=== PATIENT | female | born 1950 | race Caucasian/White ===

== ENCOUNTER → 2016-08-20 | Outpatient (CLI) | payer BC ==
[~2016-08-20] MED LIST: EVISTA; EVISTA 60MG60 MG/TAB; EVISTA 60MG60 MG/TAB PO; FEMARA PO; NORCO 325 MG-7.1 TAB PO; RECLAST5 MG/100 M IV; ZETIA 10MG TAB10 MG PO
== END ==
LOC: COL.RAD 12:15
DX: C50.912 Malignant neoplasm of unspecified site of left female breast (principal)
CPT/HCPCS: A9541

== ENCOUNTER 2016-08-21 06:51 | Day surgery (SDC) | payer BC ==
[~2016-08-21] VITALS: Ht 165.1 cm; Wt 72.7 kg
[2016-08-21] VITALS (13 sets, daily range): BP systolic 94–116; BP diastolic 52–77; PULSE 71–104; TEMP 97.2–98.9
[~2016-08-21 06:51] MED LIST changes: -FEMARA PO; -NORCO 325 MG-7.1 TAB PO; -ZETIA 10MG TAB10 MG PO
[2016-08-21] MEDS ORDERED: ZETIA 10MG TAB10 MG PO (08:03)
[2016-08-21] MEDS ORDERED: FEMARA PO (08:04)
[2016-08-22 02:32] VITALS: BP 115/60; PULSE 71; TEMP 98.5
[2016-08-22 04:51] VITALS: BP 105/60; PULSE 73; TEMP 97.6
[2016-08-22] MEDS ORDERED: NORCO 325 MG-7.1 TAB PO (09:04)
[2016-08-22 09:32] VITALS: BP 112/59; PULSE 73; TEMP 97.2
== END 2016-08-22 10:53 | disposition home or self-care (01) ==
LOC: SDCO 06:51 → SURG 12:51 → SDCO 08-22 10:53
DX: D05.12 Intraductal carcinoma in situ of left breast (principal); Z85.3 Personal history of malignant neoplasm of breast; D86.1 Sarcoidosis of lymph nodes
CPT/HCPCS: OP; J0690; J2250; J2270; J2405; J2704; J3010; J7120; Q9968

== ENCOUNTER → 2018-01-05 | Outpatient (CLI) | payer MEDICARE, OTHER ==
[~2018-01-05] MED LIST changes: +FEMARA PO; +NORCO 325 MG-7.1 TAB PO; +ZETIA 10MG TAB10 MG PO
== END ==
LOC: MC.RAD 08:59
DX: Z12.31 Encounter for screening mammogram for malignant neoplasm of breast (principal); Z92.3 Personal history of irradiation; Z90.12 Acquired absence of left breast and nipple; Z85.3 Personal history of malignant neoplasm of breast; Z98.890 Other specified postprocedural states

== ENCOUNTER → 2019-02-07 | Outpatient (CLI) | payer MEDICARE, OTHER | LOC: MC.RAD 10:00 | DX: Z12.31 Encounter for screening mammogram for malignant neoplasm of breast (principal); Z85.3 Personal history of malignant neoplasm of breast; Z90.12 Acquired absence of left breast and nipple; Z98.890 Other specified postprocedural states; Z92.3 Personal history of irradiation ==

== ENCOUNTER 2019-05-17 16:04 | Observation (INO) | payer MEDICARE, OTHER ==
[~2019-05-17] VITALS: Ht 165.1 cm; Wt 68.5 kg
[2019-05-17] MEDS ORDERED: FOLIC ACID 11 MG/TA1 PO (17:15)
[2019-05-17] MEDS ORDERED: METHOTREXA2.5 MG/TAB PO (17:16)
[2019-05-17 17:21] VITALS: BP 135/79; PULSE 92; TEMP 98.9
[2019-05-17 20:00] VITALS: BP 147/67; PULSE 89; TEMP 98.3
--- NOTE | 2019-05-17 22:19 | NUR ---
Patient requests assistance as she feels like she is going to vomit. Patient vomits 350mL of blue emesis into container plus an unknown amount that did not go into the container. Patient denies need to have bowel movement. IV fluids paused at this time. Zofran administered and ordered. Patient ambulates up to restroom, has unmeasured void. Provided towels to patient to clean up, gown and bed linens changes as well. Patient returns back to bed. Reconnected fluids. Patient denies further needs at this time.
--- NOTE | 2019-05-17 22:55 | NUR ---
Shift assessment completed. Patient having minimal discomfort on right side of abdomen. Denies N/V. Daughter and sister in room. #20 gauge IV started in right hand times one stick by this nurse. Patient tolerates procedure without difficulty. Reinforced site with tegaderm and tape. Miralax bowel prep provided to the patient, patient instructed on how to take. Patient denies further needs at this time.
--- NOTE | 2019-05-17 23:34 | NUR ---
Lying in bed with eyes open. Patient says that her nausea has subsided but she does not have the desire to drink more of the Miralax bowel prep at this time. Explained that we will give it a little bit longer and see if things get better and she is able to tolerate drinking the remainder of the bowel prep. Denies need to have bowel movement at this time. Patient denies further needs.
[2019-05-18] VITALS (13 sets, daily range): BP systolic 104–133; BP diastolic 59–95; PULSE 68–82; TEMP 98–98.9
--- NOTE | 2019-05-18 04:01 | NUR ---
Up to bathroom, has bowel movment. Returns to bed. Unable to finish 700mL of Miralax bowel prep. Patient has tried to drink but has not been able to tolerate the prep. Explained to the patient that this may affect being able to perform the colonoscopy if she is not able to clear her bowels and patient explains that she understands. Patient requests something for pain due to headache that she is getting. Administered pain medication as ordered. Lights dimmed for patient. Patient declines further needs at this time.
--- NOTE | 2019-05-18 04:53 | NUR ---
Lying in bed with eyes closed. Eyes open when name called out. Rates pain 2/10 in head. Denies any other complaints at this time.
--- NOTE | 2019-05-18 06:17 | NUR ---
Lying in bed with eyes open at this time. Reviewed consent with the patient for colonoscopy procedure today. Patient denies any further questions or concerns related to procedure. Attempted to take bowel prep through the night but vomited and then was not able to tolerate finishing the bowel prep. Had headache through evening which pain was alleviated with ordered pain medication. Patient denies further needs at this time.
[2019-05-18 06:19] LABS: BASO # 0.1 (0.0-0.2); BASO % 0.6 % (0.0-2.0); EOS # 0.1 (0.0-0.7); EOS % 1.5 % (0-4.0); GRAN # 7.5 (1.4-6.5); GRAN % 77.6 % (42.2-75.2); HEMATOCRIT 33.3 % (37.0-47.0); LYMPH # 0.8 (1.2-3.4); LYMPH % 8.7 % (20.0-51.0); MEAN CELL VOLUME 92 fl (80.0-100.0); MEAN CORPUSCULAR HEMOGLOBIN 30 pg (27.0-31.0); MEAN CORPUSCULAR HGB CONC 33 g/dl (33.0-37.0); MEAN PLATELET VOLUME 9.9 fl (7.4-10.4); MONO # 1.1 (0.1-0.6); MONO % 11.2 % (1.7-9.3); PLATELET COUNT 404 K/mm3 (130-400); RED BLOOD COUNT 3.64 M/mm3 (4.10-5.30); REDCELL DISTRIBUTION WIDTH-CV 12.5 % (11.5-14.5)
[2019-05-18 06:28] LABS: ALBUMIN 3.6 gm/dL (3.5-5.0); BILIRUBIN,TOTAL 0.7 mg/dL (0.0-1.0); CALCIUM 8.8 mg/dL (8.4-10.2); CREATININE, serum 0.57 (0.52-1.25); POTASSIUM 3.6 mmol/L (3.4-5.0); TOTAL PROTEIN 6.8 gm/dL (6.4-8.2)
--- NOTE | 2019-05-18 06:56 | NUR ---
Shift report provided to Emeterio Aragon.
--- NOTE | 2019-05-18 09:30 | NUR ---
Patient is going down for her colonoscopy. She did not have more bowel movements. Her stools were soft, not liquid. Patient has been having nausea during the night and this shift. She denies pain at this time. No other changes at this time. Call light within reach.
--- NOTE | 2019-05-18 10:18 | NUR ---
Initial visit; Patient thanked Clinical Appeals Reviewer for stopping, her Medical Record Transcriber was present so Clinical Appeals Reviewer excused herself knowing patient was in good hands.
--- NOTE | 2019-05-18 10:18 | NUR ---
SW met with the patient to discuss a discharge plan. The patient lives alone in [place]. The patient does not use DME and reports indepenence with ADLs. The patient's PCP is Dr. Tommy Ac and patient receives medications from [facility] with no difficulties. The patient does not have advanced directives in the EMR and was not interested in a DPOA-HC form. The patient plans to return home with her mom, Judy providing transportation. There are no additional needs at this time.
--- NOTE | 2019-05-18 11:00 | NUR ---
Patient is back from her colonoscopy and continues to have nausea. She stated he medications are not helping with her nausea. Family at bedside. No other changes at this time. Call light judah hubbard.
[2019-05-18] MEDS ORDERED: CIPRO 500MG TA500 MG PO (11:55)
[2019-05-18] MEDS ORDERED: FLAGYL500 MG PO (11:55)
[2019-05-18] MEDS ORDERED: NORCO 325 MG-7.1 TAB PO (11:55)
[2019-05-18] MEDS ORDERED: ZOFRAN ODT4 MG PO (11:59)
--- NOTE | 2019-05-18 18:30 | NUR ---
At about 1530 the patient started to feel better and her nausea was better. She has been taking in few clear liquids. She is starting slow. She denies pain at this time. She had some green emesis earlier in the shift but stated it did not last very long. No other changes at this time. Call light within reach.
[2019-05-19 00:23] VITALS: BP 117/62; PULSE 73; TEMP 98.8
[2019-05-19 04:00] VITALS: BP 124/69; PULSE 75; TEMP 98.2
[2019-05-19 07:09] LABS: BASO # 0.1 (0.0-0.2); BASO % 0.5 % (0.0-2.0); EOS # 0.2 (0.0-0.7); EOS % 1.9 % (0-4.0); GRAN # 7.4 (1.4-6.5); GRAN % 78.4 % (42.2-75.2); HEMOGLOBIN 10.9 g/dl (12.5-16.0); LYMPH # 0.6 (1.2-3.4); LYMPH % 5.9 % (20.0-51.0); MEAN CELL VOLUME 93 fl (80.0-100.0); MEAN CORPUSCULAR HEMOGLOBIN 30 pg (27.0-31.0); MEAN CORPUSCULAR HGB CONC 32 g/dl (33.0-37.0); MEAN PLATELET VOLUME 10.2 fl (7.4-10.4); MONO # 1.2 (0.1-0.6); MONO % 12.8 % (1.7-9.3); PLATELET COUNT 394 K/mm3 (130-400); RED BLOOD COUNT 3.62 M/mm3 (4.10-5.30); REDCELL DISTRIBUTION WIDTH-CV 12.4 % (11.5-14.5)
[2019-05-19 07:12] LABS: HEMATOCRIT 33.6 % (37.0-47.0)
[2019-05-19 07:15] LABS: ALBUMIN 3.4 gm/dL (3.5-5.0); BILIRUBIN,TOTAL 0.6 mg/dL (0.0-1.0); CALCIUM 8.5 mg/dL (8.4-10.2); CREATININE, serum 0.53 (0.52-1.25); POTASSIUM 3.5 mmol/L (3.4-5.0); TOTAL PROTEIN 6.4 gm/dL (6.4-8.2)
[2019-05-19 08:17] VITALS: BP 127/71; PULSE 74; TEMP 98.4
--- NOTE | 2019-05-19 10:06 | NUR ---
machine lay out worker met with patient to discuss discharge planning. Patient states she lives with spouse and will return home upon discharge, possibly today. Patient states she is independent with activities and denies concerns with discharge. Patient's primary care provider is Dr Snyder and patient denies concerns with obtaining her prescriptions. Patient states she does not have advance directives and is not interested in obtaining them at this time. Worker collaborated with patient's nurse regarding above information.
--- NOTE | 2019-05-19 11:00 | NUR ---
Patient is discharging home. Discharge instructions discussed with patient. No questions verbalized. INT discontinued. Explained that she has prescriptions to get filled. Explained she has antibiotics that she needs to take today. She also has a script for norco but she stated she did not want it. Patient is packing up her belongings. Copies of discharge instructions sent with patient. Patient is waiting for her ride.
[2019-05-20] MEDS ORDERED: NORCO 325 MG-51 TAB PO (08:17)
== END 2019-05-19 11:30 | disposition home or self-care (01) ==
LOC: SURG 16:04
PROVIDERS: ADMIT Surgery
DX: C18.0 Malignant neoplasm of cecum (principal); D12.0 Benign neoplasm of cecum; Z85.3 Personal history of malignant neoplasm of breast; D86.9 Sarcoidosis, unspecified; E78.5 Hyperlipidemia, unspecified; Z90.12 Acquired absence of left breast and nipple; H20.10 Chronic iridocyclitis, unspecified eye; E21.1 Secondary hyperparathyroidism, not elsewhere classified; G62.9 Polyneuropathy, unspecified; M81.0 Age-related osteoporosis without current pathological fracture; Z92.3 Personal history of irradiation; Z90.721 Acquired absence of ovaries, unilateral; Z90.710 Acquired absence of both cervix and uterus; Z79.899 Other long term (current) drug therapy
CPT/HCPCS: G0378; G0379; J0744; J2250; J2405; J3010; J7120

== ENCOUNTER 2019-05-20 05:59 | Emergency (ER) | payer MEDICARE, OTHER ==
[~2019-05-20] VITALS: Ht 165.1 cm; Wt 67.3 kg
[~2019-05-20 05:59] MED LIST changes: +CIPRO 500MG TA500 MG PO; +FLAGYL500 MG PO; +FOLIC ACID 11 MG/TA1 PO; +METHOTREXA2.5 MG/TAB PO; +ZOFRAN ODT4 MG PO
[2019-05-20 06:06] VITALS: TEMP 98.6
[2019-05-20 06:50] LABS: BASO # 0.1 (0.0-0.2); BASO % 1.1 % (0.0-2.0); EOS # 0.2 (0.0-0.7); EOS % 2.5 % (0-4.0); GRAN # 6.6 (1.4-6.5); GRAN % 78.2 % (42.2-75.2); LYMPH # 0.6 (1.2-3.4); LYMPH % 6.5 % (20.0-51.0); MEAN CELL VOLUME 92 fl (80.0-100.0); MEAN CORPUSCULAR HEMOGLOBIN 30 pg (27.0-31.0); MEAN CORPUSCULAR HGB CONC 32 g/dl (33.0-37.0); MEAN PLATELET VOLUME 10.1 fl (7.4-10.4); MONO % 11.5 % (1.7-9.3); PLATELET COUNT 405 K/mm3 (130-400); RED BLOOD COUNT 3.71 M/mm3 (4.10-5.30); REDCELL DISTRIBUTION WIDTH-CV 12.6 % (11.5-14.5)
[2019-05-20 06:51] LABS: HEMATOCRIT 34.1 % (37.0-47.0)
[2019-05-20 07:00] LABS: ALBUMIN 3.6 gm/dL (3.5-5.0); BILIRUBIN,TOTAL 0.5 mg/dL (0.0-1.0); CALCIUM 8.6 mg/dL (8.4-10.2); CREATININE, serum 0.58 (0.52-1.25); POTASSIUM 3.4 mmol/L (3.4-5.0); TOTAL PROTEIN 6.7 gm/dL (6.4-8.2)
[2019-05-20 08:16] LABS: COLLECTION METHOD CLEAN CATCH
[2019-05-20] MEDS ORDERED: NORCO 325 MG-51 TAB PO (08:17)
[2019-05-20 08:26] LABS: AMORPHOUS CRYSTAL Present /uL; MUCOUS Present /lpf; PH 7 (5-8); SQUAMOUS EPITHELIAL 0-2 /hpf; URINE APPEARANCE Hazy; URINE BACTERIA Rare /hpf; URINE BILIRUBIN Negative (NEGATIVE); URINE BLOOD Negative (NEGATIVE); URINE COLOR Yellow; URINE GLUCOSE Negative (NEGATIVE); URINE KETONE Trace (NEGATIVE); URINE LEUKOCYTE ESTERASE Negative (NEGATIVE); URINE NITRATE Negative (NEGATIVE); URINE PROTEIN(semi-quant) Negative (NEGATIVE); URINE RBC 0-2 /hpf; URINE UROBILINOGEN >=4.0 mg/dL (NEGATIVE)
[2019-05-20 09:35] VITALS: BP 132/92; PULSE 69
== END 2019-05-20 09:40 | disposition home or self-care (01) ==
LOC: COL.ER 05:59
PROVIDERS: Emergency Medicine
DX: K63.89 Other specified diseases of intestine (principal); R10.31 Right lower quadrant pain; Z85.3 Personal history of malignant neoplasm of breast
CPT/HCPCS: J2543; J3010; J7030

== ENCOUNTER 2019-05-24 08:17 | Inpatient (IN) | payer MEDICARE, OTHER ==
[~2019-05-24 08:17] MED LIST changes: +NORCO 325 MG-51 TAB PO
[2019-06-01] VITALS (8 sets, daily range): BP systolic 99–107; BP diastolic 50–67; PULSE 77–84; TEMP 97.6–98.7
--- NOTE | 2019-06-01 08:18 | NUR ---
0818- Patient brought back to [facility] [address] ambulated without difficulty. Consent and history reviewed, all questions answered. Patient placed on mointors, vital signs stable. IV placed in right wrist, lab at bedside to obtain. Patient complaining of nausea. CHIEF ADMINISTRATIVE OFFICER made aware, orders for Zofran obtained. Patient states shes had minimal improvement. Daughter and at bedside. Heart sounds regular, lung sounds clear, bowel sounds acitve. Call ly within reach, warm blanket provided, all safety maintained. Will continue to monitor.
[2019-06-01 08:57] LABS: BASO # 0.1 (0.0-0.2); BASO % 1.4 % (0.0-2.0); EOS # 0.3 (0.0-0.7); EOS % 3.7 % (0-4.0); GRAN % 74.3 % (42.2-75.2); LYMPH # 0.7 (1.2-3.4); LYMPH % 8.3 % (20.0-51.0); MEAN CELL VOLUME 89 fl (80.0-100.0); MEAN CORPUSCULAR HEMOGLOBIN 29 pg (27.0-31.0); MEAN CORPUSCULAR HGB CONC 33 g/dl (33.0-37.0); MEAN PLATELET VOLUME 9.9 fl (7.4-10.4); MONO % 11.9 % (1.7-9.3); PLATELET COUNT 441 K/mm3 (130-400); REDCELL DISTRIBUTION WIDTH-CV 13.1 % (11.5-14.5)
[2019-06-01 08:58] LABS: HEMATOCRIT 36.6 % (37.0-47.0)
[2019-06-01 09:09] LABS: ALANINE AMINOTRANSFERASE < 6 U/L (9-52); ALKALINE PHOSPHATASE 118 U/L (50-136); ANION GAP 10 mmol/L (7-16); AST,SGOT 29 U/L (15-37); BILIRUBIN,TOTAL 0.4 mg/dL (0.0-1.0); BLOOD UREA NITROGEN 6 mg/dL (7-17); CALCIUM 9.4 mg/dL (8.4-10.2); CARBON DIOXIDE 29 mmol/L (22-30); CHLORIDE 100 mmol/L (98-107); CREATININE, serum 0.54 (0.52-1.25); GLUCOSE 107 mg/dL (74-106); SODIUM 139 mmol/L (137-145); TOTAL PROTEIN 7.4 gm/dL (6.4-8.2)
--- NOTE | 2019-06-01 16:05 | NUR ---
PATIENT ADMITED INTO ROOM 347 POST OP ROBOTIC RIGHT HEMICOLECTOMY AND CYSTO. ABDOMINAL LAP SITES X3 AND LOWER ABDOMINAL TRANSVERSE INCISION ARE CD&I WITH GLUED CLOSURE. HYPO BOWL SOUNDS NOTED. NO C/O N/V. LIQUIDS AT BEDSIDE. POST OP B/P LOW IN 90'S TO LOW 100'S SYSTOLIC. ALL OTHER VSS. PATIENT IS PALE, WEAK & TIRED. RESTING UP IN BED WITH FAMILY AT BEDSIDE. HOB LOWERED FOR PRESSURES. IV FLUIDS INFUSING VIA PUMP INTO RIGHT WRIST IV. RIGHT PORT PLACED IN OR TODAY. DESIR TO DEPENDENT DRAINAGE WITH SMALL AMOUNTS OF ROSEMARIE COLORED URINE NOTED. HEAD TO TOE ASSESSMENT COMPLETE. FAMILY AT BEDSIDE. CALL LIGHT IN REACH.
--- NOTE | 2019-06-01 22:15 | NUR ---
Pt doing ok. Resting in bed. Had right robotic alvaro. 3 lap sites with 1 transverse with glue. All sites CD&I. Patient states she is having minimal pain right now, does feel fatigued. BP have stabilized. Has not had BM or passed gas this shift. Has IV to right wrist and right sided portacath. PT does not have any complaints at this time. Call light within reach, will continue to monitor
[2019-06-02 00:41] VITALS: BP 121/66; PULSE 68; TEMP 98.3
[2019-06-02 04:00] VITALS: BP 120/86; PULSE 72; TEMP 98.3
[2019-06-02 07:07] LABS: BASO % 0.2 % (0.0-2.0); GRAN # 9.8 (1.4-6.5); GRAN % 86.4 % (42.2-75.2); HEMOGLOBIN 10.7 g/dl (12.5-16.0); LYMPH # 0.6 (1.2-3.4); MEAN CELL VOLUME 91 fl (80.0-100.0); MEAN CORPUSCULAR HEMOGLOBIN 29 pg (27.0-31.0); MEAN CORPUSCULAR HGB CONC 32 g/dl (33.0-37.0); MEAN PLATELET VOLUME 10.5 fl (7.4-10.4); MONO # 0.9 (0.1-0.6); MONO % 7.8 % (1.7-9.3); PLATELET COUNT 397 K/mm3 (130-400); RED BLOOD COUNT 3.68 M/mm3 (4.10-5.30); REDCELL DISTRIBUTION WIDTH-CV 13.3 % (11.5-14.5)
[2019-06-02 07:17] LABS: HEMATOCRIT 33.4 % (37.0-47.0)
[2019-06-02 07:36] LABS: CALCIUM 8.8 mg/dL (8.4-10.2); CREATININE, serum 0.67 (0.52-1.25); MAGNESIUM 1.8 mg/dL (1.6-2.3); PHOSPHOROUS 3.7 mg/dL (2.5-4.5); POTASSIUM 3.5 mmol/L (3.4-5.0)
[2019-06-02 09:06] VITALS: BP 123/65; PULSE 72; TEMP 98.6
[2019-06-02 12:47] VITALS: BP 115/73; PULSE 80; TEMP 98.5
--- NOTE | 2019-06-02 13:41 | NUR ---
Abd lap sites x3 Clean dry and intact. Abd incision clean dry and intact. Patient resting in bed with visitor in room. Call light within reach.
--- NOTE | 2019-06-02 15:31 | NUR ---
Book Jacket Cover Machine Operator met with the patient to discuss discharge planning. Patient lives outside of [place] with her , Stef (ph#[phone]). Patient reports independence with ADLS and has no DME. Patient sees Dr. Snyder for primary care and obtains prescriptions from [facility] pharmacy with no issue. Patient does not have Advance Directives but was interested in taking home the DPOA-HC form. SW provided. Patient does not have any concerns at this time about returning home upon discharge.
[2019-06-02 16:34] VITALS: BP 127/70; PULSE 71; TEMP 99.1
--- NOTE | 2019-06-02 19:40 | NUR ---
Pt doing well. Resting in bed. Alert and oriented with VSS. Ate soup and ice cream for dinner. States she had a large liquid BM after dinner. Does not complain of pain at this time. Still has fluids running. L arm restriction due to mastectomy. Patient denies other needs at this time. Call light within reach, will continue to monitor
[2019-06-02 20:00] VITALS: BP 111/67; PULSE 77; TEMP 98.5
[2019-06-03] VITALS (8 sets, daily range): BP systolic 99–130; BP diastolic 65–79; PULSE 68–87; TEMP 97.9–98.8
--- NOTE | 2019-06-03 01:40 | NUR ---
Pt had large loose BM with moderate amount of bright red blood.
--- NOTE | 2019-06-03 02:27 | NUR ---
Pt had 2nd episode of incontinent BM. Large loose stool with bright red blood noted.
[2019-06-03 07:14] LABS: BASO # 0.1 (0.0-0.2); BASO % 0.7 % (0.0-2.0); EOS # 0.1 (0.0-0.7); EOS % 1.6 % (0-4.0); GRAN # 5.5 (1.4-6.5); GRAN % 74.5 % (42.2-75.2); LYMPH % 13.7 % (20.0-51.0); MEAN CELL VOLUME 91 fl (80.0-100.0); MEAN CORPUSCULAR HGB CONC 32 g/dl (33.0-37.0); MEAN PLATELET VOLUME 10.5 fl (7.4-10.4); MONO # 0.7 (0.1-0.6); MONO % 9.1 % (1.7-9.3); PLATELET COUNT 333 K/mm3 (130-400); RED BLOOD COUNT 2.99 M/mm3 (4.10-5.30); REDCELL DISTRIBUTION WIDTH-CV 13.6 % (11.5-14.5)
[2019-06-03 07:25] LABS: HEMATOCRIT 27.3 % (37.0-47.0); HEMOGLOBIN 8.7 g/dl (12.5-16.0); MEAN CORPUSCULAR HEMOGLOBIN 29 pg (27.0-31.0)
[2019-06-03 07:35] LABS: CREATININE, serum 0.61 (0.52-1.25)
--- NOTE | 2019-06-03 09:45 | NUR ---
Patient alert and oriented, answers questions appropriately. See assessment. Abdomen soft, non tender, non distended. Bowel sounds active x4 quads. +Flatus. +Bowel movement. Lap sites and low transverse incisions to abdomen with edges well approximated, no redness or drainage noted. Patient c/o "not feeling well, but has no specific complaints. No other c/o at this time.
--- NOTE | 2019-06-03 10:05 | NUR ---
Initial visit; Patient thanked Immigration Consultant for looking in on her and offering God's blessings. Patient's Manager Inventory Management is aware of her hospitalization.
[2019-06-03] MEDS ORDERED: NEURONTIN100 MG/CAP PO (10:17)
[2019-06-03] MEDS ORDERED: ULTRAM 50MG TAB50 MG PO (10:17)
[2019-06-03] MEDS ORDERED: ROXICODONE 55 MG/TAB PO (10:17)
--- NOTE | 2019-06-03 13:42 | NUR ---
Patient resting in bed, call light within reach. Reported on to primary nurse RN Tameka.
[2019-06-03 14:10] LABS: HEMOGLOBIN 10.4 g/dl (12.5-16.0)
[2019-06-03 14:11] LABS: HEMATOCRIT 32.9 % (37.0-47.0)
--- NOTE | 2019-06-03 18:26 | NUR ---
Pt resting in bed in lowest position, call light in reach. Pt up ambulating every hour with assistance, gait is stable. Educated on the importance of IS use and SCD's while resting. Pt verbalizes no acute concerns at this time. Reported off to MARILYN English.
--- NOTE | 2019-06-03 20:00 | NUR ---
Pt. sitting up in bed at this time. Pt. is A&OX3, assessment complete. INT to rt. forearm patent. Portacath to rt. chest dressing CDI, site not accessed at this time. Three abd. lap sites noted with swiftset, edges well approximated. Low transverse incsion with swiftset, edges well approximated. Pt. reports pain at a 3 on pain scale, at this time. Gave evening meds. Pt. denies further needs, call light within reach.
[2019-06-04 04:30] VITALS: BP 131/67; PULSE 78; TEMP 98.2
[2019-06-04 06:42] LABS: BASO # 0.1 (0.0-0.2); EOS # 0.4 (0.0-0.7); EOS % 5.2 % (0-4.0); GRAN # 5.3 (1.4-6.5); GRAN % 73.6 % (42.2-75.2); LYMPH # 0.7 (1.2-3.4); LYMPH % 9.4 % (20.0-51.0); MEAN CELL VOLUME 93 fl (80.0-100.0); MEAN CORPUSCULAR HGB CONC 32 g/dl (33.0-37.0); MEAN PLATELET VOLUME 10.7 fl (7.4-10.4); MONO # 0.7 (0.1-0.6); PLATELET COUNT 340 K/mm3 (130-400); RED BLOOD COUNT 3.05 M/mm3 (4.10-5.30); REDCELL DISTRIBUTION WIDTH-CV 13.9 % (11.5-14.5)
[2019-06-04 06:46] LABS: HEMATOCRIT 28.4 % (37.0-47.0); HEMOGLOBIN 9.1 g/dl (12.5-16.0); MEAN CORPUSCULAR HEMOGLOBIN 30 pg (27.0-31.0)
[2019-06-04 06:52] LABS: CALCIUM 8.2 mg/dL (8.4-10.2); CREATININE, serum 0.56 (0.52-1.25); POTASSIUM 3.2 mmol/L (3.4-5.0)
[2019-06-04 07:39] VITALS: BP 115/98; PULSE 78; TEMP 98.7
--- NOTE | 2019-06-04 09:23 | NUR ---
Assessment completed, alert/oriented, vital signs stable, reports pain is minimal and controlled at this time, abdomen is soft/ incision sites are C/D/I, tolerating low fiber diet well, she is passing gas and has had multiple stools/ dark with coffee grounds noted, hemaglobin stable at 9, heart RRR/ lungs CTA, up ambulating independently, discussed plan of care with , anticipate patient will disscharge home later today
--- NOTE | 2019-06-04 11:41 | NUR ---
Discharge instructions reviewed with the patient, instructed to follow up with as scheduled, instructed to take pain meds as prescribed as needed, scripts provided, instructed on incision site care and discussed bathing/activity restrictions, education provided on low fiber diet and this was reviewed, IV removed, leaving with her , I personally escorted them out the door
== END 2019-06-04 11:43 | disposition home or self-care (01) | DRG 330 ==
LOC: INPTSU 06-01 08:12 → SURG 06-01 11:00
PROVIDERS: Urology; ADMIT Surgery
PROC: 02HV33Z Insertion of Infusion Device into Superior Vena Cava, Percutaneous Approach (ICD-10-PCS; 2019-06-01)
PROC: B5181ZA Fluoroscopy of Superior Vena Cava using Low Osmolar Contrast, Guidance (ICD-10-PCS; 2019-06-01)
PROC: 0DTF4ZZ Resection of Right Large Intestine, Percutaneous Endoscopic Approach (ICD-10-PCS; principal; 2019-06-01 11:00)
PROC: 0JH60WZ Insertion of Totally Implantable Vascular Access Device into Chest Subcutaneous Tissue and Fascia, Open Approach (ICD-10-PCS; 2019-06-01 11:00)
PROC: B5181ZA Fluoroscopy of Superior Vena Cava using Low Osmolar Contrast, Guidance (ICD-10-PCS; 2019-06-01 11:00)
DX: C18.0 Malignant neoplasm of cecum (principal); C78.7 Secondary malignant neoplasm of liver and intrahepatic bile duct; K36 Other appendicitis
CPT/HCPCS: A4314; A9284; C1788; J0690; J1100; J1644; J1650; J1885; J2250; J2405; J2704; J3010; J7120

== ENCOUNTER → 2020-04-18 | Outpatient (CLI) | payer MEDICARE, OTHER ==
[~2020-04-18] MED LIST changes: +NEURONTIN100 MG/CAP PO; +ROXICODONE 55 MG/TAB PO; +ULTRAM 50MG TAB50 MG PO
== END ==
LOC: COL.RAD
DX: C18.9 Malignant neoplasm of colon, unspecified (principal); C78.7 Secondary malignant neoplasm of liver and intrahepatic bile duct

== ENCOUNTER → 2020-05-31 | Outpatient (CLI) | payer MEDICARE, OTHER ==
[~2020-05-31] VITALS: Ht 165.1 cm; Wt 59.1 kg
[~2020-05-31] MED LIST changes: +ELIQUIS 5MG PO; +NEURONTIN300 MG/CAP PO
[2020-05-31 09:10] VITALS: BP 118/89; PULSE 104
[2020-05-31 10:20] VITALS: BP 133/82; PULSE 104
== END ==
LOC: COL.RAD 08:30
DX: C18.9 Malignant neoplasm of colon, unspecified (principal)